=== PATIENT | male | born 1965 | race Caucasian/White ===

== ENCOUNTER 2018-12-19 20:27 | Observation (INO) ==
--- NOTE | 2018-12-19 20:50 | XRay Report ---
XR chest 1V portable HISTORY: 53 years-old Male Chest Pain acute atypical chest pain COMPARISON: None available TECHNIQUE: Portable AP view of the chest FINDINGS: Cardiomediastinal and hilar silhouettes are within normal limits. No pneumothorax, pleural effusion, focal airspace consolidation or overt pulmonary edema. Eventration of the right hemidiaphragm. IMPRESSION: No acute process. The above report was generated using voice recognition software. It may contain grammatical, syntax o r spelling errors. Electronically signed by: Clark Medina M.D. 12/19/2018 8:48 PM
[2018-12-19 21:12] LABS: Basophils # (auto) 0.04 K/uL (0-0.2); Basophils % (auto) 0.4 %; Eosinophils # (auto) 0.07 K/uL (0-0.5); Eosinophils % (auto) 0.7 %; Hemoglobin 14.9 g/dL (14.0-18.0); Immature Granulocytes # (auto) 0.01 K/uL (0.00-0.02); Immature Granulocytes % (auto) 0.1 %; Lymphocytes # (auto) 2.12 K/uL (1.2-3.4); Mean Corpuscular Hemoglobin 30.8 pg (25-34); Mean Corpuscular Hgb Conc 34.7 g/dL (32-36); Mean Platelet Volume 11.1 fL (7.4-10.4); Monocytes # (auto) 0.91 K/uL (0.11-0.59); Monocytes % (auto) 9.4 %; Neutrophils % (auto) 67.4 %; Platelet Count 199 K/uL (130-400); RDW Coefficient of Variation 13.7 % (11.5-14.5); RDW Standard Deviation 44.9 fL (36.4-46.3); Red Blood Count 4.83 M/uL (4.7-6.1); White Blood Count 9.65 K/uL (4.8-10.8)
[2018-12-19] MEDS ORDERED: ASPIRIN CHEW 324 MG PO STA (21:20)
[2018-12-19 21:21] LABS: Alanine Aminotransferase 39 U/L (12-78); Albumin Level 4.1 gm/dl (3.4-5.0); Aspartate Aminotransferase 33 U/L (15-37); Blood Urea Nitrogen 13 mg/dl (7-18); Carbon Dioxide 24 mmol/L (21-32); Chloride 108 mmol/L (98-107); Creatinine Clr Calc Pharmacy 116.5 ml/min; Est GFR (African American) 89.1; Est GFR (Non-African American) 76.9; Glucose 115 mg/dl (70-99); Lipase 92 U/L (73-393); Magnesium 1.8 mg/dl (1.8-2.4); Potassium 3.2 mmol/L (3.5-5.1); Sodium 141 mmol/L (136-145)
[2018-12-19 21:26] LABS: Albumin Globulin Ratio 1.3 (0.9-2); Alkaline Phosphatase 51 U/L (45-117); Bilirubin,Total 0.5 mg/dl (0.2-1); Globulin 3.3 gm/dl (2.5-4.0); Phosphorus 3.1 mg/dl (2.5-4.9); Total Protein 7.4 gm/dl (6.4-8.2); Troponin I < 0.015 ng/ml (0-0.045)
[2018-12-19] MEDS ORDERED: POTASSIUM CHLORIDE 20 MEQ TABCR PO STA (21:31)
[2018-12-19] MEDS ORDERED: POTASSIUM ACETATE 10 MEQ in 0.9 % SODIUM CHLORIDE 100 ML IV STA (21:31)
[2018-12-19] MEDS ORDERED: SODIUM CHLORIDE 0.9% 1000ML 1,000 ML IV STA (21:31)
[2018-12-19 21:34] LABS: INR 1.1 (0.9-1.1); Partial Thromboplastin Ratio 0.9; Partial Thromboplastin Time 24.8 Seconds (21.0-31.0); Prothrombin Time 11.2 Seconds (9.0-12.0)
--- NOTE | 2018-12-19 22:32 | History & Physical Report ---
Date of Service December 19, 2018 Assessment & Plan (1) Unstable angina: Unstable angina/strong family history of coronary disease/obesity/hyperglycemia/probable metabolic syndrome- The patient will be admitted to telemetry for serial cardiac enzymes, serial EKG's, cardiac rhythm monitoring and a 2-D echocardiogram with Dopplers. Given aspirin 324 mg orally in the ED. Continue aspirin 81 mg daily. Standard heparin drip per protocol begun in ED and will be continued. Repeat laboratories in a.m. Consult cardiology, as patient is new to the area, and even if laboratories are normal, likely has underlying cardiovascular disease and needs a design teacher to follow with. Present on Admission?: Yes (2) Family history of coronary artery disease: Father had OK and CABG at age 55. Brother had coronary artery stents at age 53. Present on Admission?: Yes (3) Obesity (BMI 30-39.9): Noted as risk factor for cardiovascular disease. Present on Admission?: Yes (4) Hypokalemia: Give 40 mEq Klor-Con in the ED. Placed on NSS + KCl 20 mEq at 100 mils per hour. Magnesium borderline at 1.8. We will give 1 g of mag sulfate IV. Repeat BMP and magnesium level in a.m. Present on Admission?: Yes (5) Hyperglycemia, unspecified: Blood sugar 115 in the ED. We will check hemoglobin A1c and fasting lipid panel in a.m. Present on Admission?: Yes History of Present Illness Chief Complaint: The patient presents to the emergency department with inc reasing frequency of episodes of shortness of breath and chest discomfort over the past 2 to 3 days. Primary Care Provider: NO PCP The patient is a 53-year-old male with no significant past medical history, who has not been involved with a medical system for many years, and has a very significant family history of coronary artery disease and his father and brother. He just moved to the area this past weekend, and over the past 2 to 3 days has been doing more lifting and unpacking of heavier objects. With this activity, he has developed episodes of chest discomfort and shortness of breath, that resolved with rest. They have been developing with an more frequent intervals and lasting longer. He presented to the emergency department for assessment, was felt to have unstable angina, and was started on aspirin 324 mg and standard heparin drip without bolus. In the emergency department, he does also report some intermittent episodes of lightheadedness. Allergies Allergy/AdvReac Type Severity Reaction Status Date / Time No Known Allergies Allergy Unverified 12/19/18 22:17 Home Medications Home Medications Medication Instructions Recorded Confirmed Type No Known Home Medications 12/19/18 12/19/18 History Past Med/Surg History Medical History No pertinent past medical history Surgical History No pertinent past surgical history Family History Other No pertinent family history Social History Preferred Language: Frisian Communication Ability: Effective Field Tax Auditor Required: No Beliefs That Will Affect Care: None Current Living Situation: Spouse Other Information That Helps Us Care for You: No Feels Safe at Home: Yes Safety Concerns: Feels Safe At This Time Smoking Status: Never smoker Do You Dip or Chew Tobacco: No ; Second Hand Exposure: No ; Tobacco Cessation Education Requested by Patient: No Hx Alcohol Use: No Hx Substance Use: No Review of Systems Review of Systems: The patient denies palpitations, cough, lower extremity swelling, sore throat, fevers, chills, sweats, fatigue, nausea, vomiting, diarrhea , constipation, abdominal pain, pelvic pain, blood in urine or stool, dysuria, urinary frequency or urgency, dizziness, headache, memory loss, loss of consciousness, rash, abnormal bruising or bleeding, imbalance, focal or generalized weakness, numbness or tingling in arms or legs, generalized arthralgias or myalgias, back or neck pain, or night sweats. The review of systems is otherwise negative other than for that already noted above, and at least 10 systems have been reviewed. Physical Exam Physical Exam: The patient is awake, alert and oriented 3, well developed and well nourished, normocephalic and atraumatic, lying in bed and in no acute distress. HEENT--PERRL, EOMI, mucous membranes and oropharynx normal. Neck--supple. No JVD. No bruits. Thyroid normal, trachea midline, no adenopathy. Heart--normal S1 and S2. No murmurs, rubs or gallops. Lungs--clear bilaterally, no respiratory distress, no accessory muscle use. Abdomen--normal bowel sounds and soft. Nontender. Nondistended. Obese. Extremities--no cyanosis or clubbing. No edema. There are good distal pulses b/l. Dermatologic--normal skin turgor, normal color, no abnormal lymph nodes, no rash. Neurologic--cranial nerves II through XII grossly intact. Rheumatologic--normal range of motion. Psychiatric--normal affect. Results & Data Vital Signs (Past 12 Hours) Vital Signs Temp Pulse Pulse Resp BP BP Pulse Ox 12/19/18 21:30 75 18 144/93 H 96 12/19/18 20:28 98.1 F 95 H 16 160/99 H 96 Laboratory Results Laboratory Results WBC 9.65 K/uL (4.8-10.8) 12/19/18 20:55 RBC 4.83 M/uL (4.7-6.1) 12/19/18 20:55 Hgb 14.9 g/dL (14.0-18.0) 12/19/18 20:55 Hct 43.0 % (42-52) 12/19/18 20:55 MCV 89.0 fL (80-100) 12/19/18 20:55 MCH 30.8 pg (25-34) 12/19/18 20:55 MCHC 34.7 g/dL (32-36) 12/19/18 20:55 RDW Std Deviation 44.9 fL (36.4-46.3) 12/19/18 20:55 RDW Coeff of Siddhartha 13.7 % (11.5-14.5) 12/19/18 20:55 Plt Count 199 K/uL (130-400) 12/19/18 20:55 MPV 11.1 fL (7.4-10.4) H 12/19/18 20:55 Immature Gran % (Auto) 0.1 % 12/19/18 20:55 Neut % (Auto) 67.4 % 12/19/18 20:55 Lymph % (Auto) 22.0 % 12/19/18 20:55 [place] % (Auto) 9.4 % 12/19/18 20:55 Eos % (Auto) 0.7 % 12/19/18 20:55 Baso % (Auto) 0.4 % 12/19/18 20:55 Immature Gran # (Auto) 0.01 K/uL (0.00-0.02) 12/19/18 20:55 Neut # (Auto) 6.50 K/uL (1.4-6.5) 12/19/18 20:55 Lymph # (Auto) 2.12 K/uL (1.2-3.4) 12/19/18 20:55 [place] # (Auto) 0.91 K/uL (0.11-0.59) H 12/19/18 20:55 Eos # (Auto) 0.07 K/uL (0-0.5) 12/19/18 20:55 Baso # (Auto) 0.04 K/uL (0-0.2) 12/19/18 20:55 PT 11.2 Seconds (9.0-12.0) 12/19/18 20:55 INR 1.1 (0.9-1.1) 12/19/18 20:55 APTT 24.8 Seconds (21.0-31.0) 12/19/18 20:55 PTT Ratio 0.9 12/19/18 20:55 Sodium 141 mmol/L (136-145) 12/19/18 20:55 Potassium 3.2 mmol/L (3.5-5.1) L 12/19/18 20:55 Chloride 108 mmol/L (98-107) H 12/19/18 20:55 Carbon Dioxide 24 mmol/L (21-32) 12/19/18 20:55 Anion Gap 9.0 (3-11) 12/19/18 20:55 BUN 13 mg/dl (7-18) 12/19/18 20:55 Creatinine 1.08 mg/dl (0.6-1.4) 12/19/18 20:55 Est Cr Clr Drug Dosing 116.5 ml/min 12/19/18 20:55 Est GFR ( Amer) 89.1 12/19/18 20:55 Est GFR (Non-Af Amer) 76.9 12/19/18 20:55 BUN/Creatinine Ratio 12.0 (10-20) 12/19/18 20:55 Glucose 115 mg/dl (70-99) H 12/19/18 20:55 Calcium 9.0 mg/dl (8.5-10.1) 12/19/18 20:55 Phosphorus 3.1 mg/dl (2.5-4.9) 12/19/18 20:55 Magnesium 1.8 mg/dl (1.8-2.4) 12/19/18 20:55 Total Bilirubin 0.5 mg/dl (0.2-1) 12/19/18 20:55 AST 33 U/L (15-37) 12/19/18 20:55 ALT 39 U/L (12-78) 12/19/18 20:55 Alkaline Phosphatase 51 U/L (45-117) 12/19/18 20:55 Troponin I < 0.015 ng/ml (0-0.045) 12/19/18 20:55 Total Protein 7.4 gm/dl (6.4-8.2) 12/19/18 20:55 Albumin 4.1 gm/dl (3.4-5.0) 12/19/18 20:55 Globulin 3.3 gm/dl (2.5-4.0) 12/19/18 20:55 Albumin/Globulin Ratio 1.3 (0.9-2) 12/19/18 20:55 Lipase 92 U/L (73-393) 12/19/18 20:55 Diagnostic Findings [place], [place] [phone] XRay Report Patient: TIAGO WOLF Date: 12/19/18 MR#: [id number]: Acct ID:[id number]: Date: [address] Zip: Age: 53Location: ED Sex: M Room/Bed: Att Phy:Diagnosis: CHEST PAIN Mercedes Phy: PCP,NOService Date: 12/19/18 Fam Phy:Interpreting Phy: Jacobo Medina Admit Phy: Ordering Phy: Ata Parra M.D. cc: ~ XR chest 1V portable HISTORY: 53 years-old Male Chest Pain acute atypical chest pain COMPARISON: None available TECHNIQUE: Portable AP view of the chest FINDINGS: Cardiomediastinal and hilar silhouettes are within normal limits. No pneumothorax, pleural effusion, focal airspace consolidation or overt pulmonary edema. Eventration of the right hemidiaphragm. IMPRESSION: No acute process. The above report was generated using voice recognition software. It may contain grammatical, syntax or spelling errors. Electronically signed by: Clark Medina M.D. 12/19/2018 8:48 PM Dictated: 12/19/182046 Transcribed: 12/19/182046 Code Status & VTE Plan Code Status Full code VTE Prophylaxis Plan VTE Prophylaxis will be ordered: Yes PG Care Time/CCT Total # of Minutes Spent Total Time Spent with Patient: Total time spent is greater than 50% in coordination of care (as documented) at patient's floor/unit and/or counseling patient:
[2018-12-19] MEDS: HEPARIN SODIUM/DEXTROSE 25,000 UNITS/500 ML BAG IV SCH (22:33)
[2018-12-19] MEDS ORDERED: MAGNESIUM SULFATE / D5W 1 GM/100 ML BAG IV STA (22:35)
[2018-12-19] MEDS ORDERED: ACETAMINOPHEN 325 MG TAB PO PRN (23:20)
[2018-12-19] MEDS ORDERED: NITROGLYCERIN SL 0.4 MG/TAB TAB SL PRN (23:20)
[2018-12-19] MEDS ORDERED: ONDANSETRON INJ 2 MG/ML 2 ML VIAL IV PRN (23:20)
[2018-12-19] MEDS ORDERED: MoRPHine SULFATE 2 MG/ML CARP IV PRN (23:20)
[2018-12-19] MEDS ORDERED: MAGNESIUM HYDROXIDE SUSP 30 ML UDC PO PRN (23:20)
[2018-12-19] MEDS ORDERED: ALUMINUM/MAGNESIUM SUSP 30 ML UDC PO PRN (23:20)
--- NOTE | 2018-12-19 23:33 | Emergency Department Note ---
Entered by Myra Brewster acting as a scribe for Ata Parra MD History of Present Illness General Chief complaint: Chest Pain Stated complaint: CHEST PAIN Time Seen by Provider: 12/19/18 20:37 Source: patient History of Present Illness Onset (ago): hour(s) (1) Location: chest Pain Consistency: + intermittent Maximum Pain Intensity: 6 Exacerbated By: + other (exertion) Associated symptoms: + diaphoresis, + shortness of breath and + other (chest tightness) The patient is a 53 year old male who presents to the Emergency Room with complaints of intermittent chest pain beginning 1 hour ago. The patient states he was exerting himself when the pain began. He notes the pain slowly starts to resolve upon sitting down. He reports shortness of breath and sweating. He denies congestion, cough, fever, and diarrhea. The patient reports chest tightness with exertion several times over the past few days. The patient denies any medical problems. He denies seeing a doctor regularly. The patient reports a family history of cardiac issues. He states his father and brother both had OR in their late 50s. Home Medications Home Medications Medication Instructions Recorded Confirmed Type No Known Home Medications 12/19/18 12/19/18 History Allergies Allergy/AdvReac Type Severity Reaction Status Date / Time No Known Allergies Allergy Unverified 12/19/18 22:17 Past Med/Surg History Medical History No pertinent past medical history Surgical History No pertinent past surgical history Family History Other No pertinent family history Social History Preferred Language: Setswana Communication Ability: Effective Evs Attendant Required: No Beliefs That Will Affect Care: None Current Living Situation: Spouse Other Information That Helps Us Care for You: No Feels Safe at Home: Yes Safety Concerns: Feels Safe At This Time Smoking Status: Never smoker Do You Dip or Chew Tobacco: No ; Second Hand Exposure: No ; Tobacco Cessation Education Requested by Patient: No Hx Alcohol Use: No Hx Substance Use: No Review of Systems See HPI for pertinent positives & negatives. and A total of 10 systems reviewed and were otherwise negative Physical Exam Vital Signs Vital Signs - 24 hr 12/19/18 20:28 12/19/18 21:30 Temperature 36.7 C Temperature Source Oral Sepsis Recent Fever Within 48 Hours No Sepsis New/Unexplained Change in Mental Status No Sepsis Action Taken by Nursing No Action Required Pulse Rate 95 H Pulse Rate [Bilateral] 75 Respiratory Rate 16 18 Respiratory Effort / Characteristics Non-Labored Spontaneous Respiratory Depth Normal Respiratory Pattern Regular Blood Pressure 160/99 H Blood Pressure [Left Arm] 144/93 H Blood Pressure Mean 119 Blood Pressure Mean [Left Arm] 110 Blood Pressure Position [Left Arm] Lying Pulse Oximetry 96 96 Oxygen Delivery Method Room Air Room Air GENERAL: Awake, alert, fatigued-appearing, in no distress HENT: Normocephalic, atraumatic. Oropharynx with dry mucous membranes and otherwise unremarkable. EYES: Normal conjunctiva. Sclera non-icteric. NECK: Supple. No nuchal rigidity. FROM. No JVD. RESPIRATORY: CTAB. CARDIAC: Regular rate, normal rhythm. Extremities warm and well perfused. Pulses equal. ABDOMEN: Soft, non-distended. No tenderness to palpation. No rebound or guarding. No masses. RECTAL: Deferred. MUSCULOSKELETAL: Chest examination reveals no tenderness. The back is symmetrical on inspection without obvious abnormality. There is no CVA tendernes s to palpation. No joint edema. LOWER EXTREMITIES: Calves are equal size bilaterally and non-tender. No edema. No discoloration. NEURO: Normal sensorium. No sensory or motor deficits noted. SKIN: No rash or jaundice noted. Course 2109: Past medical records reviewed. The patient was evaluated in room B04B. A complete history and physical exam was performed. 2129: Upon reevaluation, I discussed findings and results with the patient. He verbalized agreement of the treatment plan. I spoke with Dr. Thacker of the [facility] Hospitalist Service. The patient will be evaluated for further management and care. Administered Medications Heparin Sodium/Dextrose (Heparin Sodium/Dextrose) 25,000 units in 500 mls @ 38 mls/hr IV .[id number] COUNT INCLUDES THE [facility]; Protocol Stop: 01/18/19 21:29 Last Titration: 12/19/18 23:21 Dose: 1,900 units/hr, 38 mls/hr Documented by: [id number] Cosigned by: [id number] Admin: 12/19/18 22:33 Dose: 1,900 units/hr, 38 mls/hr Documented by: [id number] Cosigned by: [id number] Sodium Chloride (Nss 1000ml) 1,000 mls @ 250 mls/hr IV .Q4H STA Stop: 12/20/18 01:30 EST Last Infusion: 12/19/18 23:35 Dose: 0 mls/hr Documented by: [id number] Admin: 12/19/18 22:33 Dose: 250 mls/hr Documented by: [id number] Potassium Chloride/Sodium Chloride (Normal Saline W/20 Meq Kcl) 20 meq in 1,000 mls @ 100 mls/hr IV .Q10H YON Stop: 01/18/19 21:59 Last Admin: 12/19/18 23:38 Dose: 100 mls/hr Documented by: [id number] Nitroglycerin (Nitro-Bid 2%) 1 inch EXT Q6 YON Stop: 01/19/19 00:00 Last Admin: 12/19/18 23:38 Dose: 1 inch Documented by: [id number] Discontinued Medications Aspirin (Aspirin) 324 mg PO NOW STA Stop: 12/19/18 21:21 Last Admin: 12/19/18 21:23 Dose: 324 mg Documented by: [id number] Heparin Sodium/Dextrose () 1 ea IV NOW STA; Protocol Stop: 12/19/18 21:30 Last Admin: 12/19/18 22:41 Dose: Not Given Documented by: [id number] Potassium Acetate 10 meq/ (Sodium Chloride) 105 mls @ 105 mls/hr IV NOW STA Stop: 12/19/18 22:30 Last Admin: 12/19/18 21:49 Dose: Not Given Documented by: [id number] Magnesium Sulfate/Dextrose (Magnesium Sulfate / D5w) 1 gm in 100 mls @ 100 mls/hr IV NOW STA Stop: 12/19/18 23:34 Last Infusion: 12/19/18 23:50 Dose: 0 mls/hr Documented by: [id number] Admin: 12/19/18 22:50 Dose: 100 mls/hr Documented by: [id number] Miscellaneous Information (Patient's Allergy Info Needs Entered) 1 ea N/A Q30M YON Stop: 01/18/19 22:14 Last Admin: 12/20/18 00:17 Dose: Not Given Documented by: [id number] Admin: 12/20/18 00:16 Dose: Not Given Documented by: [id number] Admin: 12/20/18 00:15 Dose: Not Given Documented by: [id number] Potassium Chloride (Klor-Con M20) 40 meq PO NOW STA Stop: 12/19/18 21:32 Last Admin: 12/19/18 22:32 Dose: 40 meq Documented by: [id number] Medical Decision Making Differential Diagnosis Differential diagnoses includes but is not limited to acute coronary syndrome, myocardial infarction, pericarditis, pulmonary embolus, aortic dissection, pneumonia, pneumothorax, musculoskeletal, shingles, esophageal. Medical Records Attestation: I reviewed the patient's medical records. Home Medications Current Medication List: was personally reviewed by me Laboratory Data Attestation: I reviewed the patient's lab results. Result diagrams: 12/19/18 20:55 12/19/18 20:55 Lab Results 12/19/18 12/19/18 12/19/18 Range/Units 20:55 20:55 20:55 WBC 9.65 (4.8-10.8) K/uL RBC 4.83 (4.7-6.1) M/uL Hgb 14.9 (14.0-18.0) g/dL Hct 43.0 (42-52) % MCV 89.0 (80-100) fL MCH 30.8 (25-34) pg MCHC 34.7 (32-36) g/dL RDW Std Deviation 44.9 (36.4-46.3) fL RDW Coeff of Siddhartha 13.7 (11.5-14.5) % Plt Count 199 (130-400) K/uL MPV 11.1 H (7.4-10.4) fL Immature Gran % (Auto) 0.1 % Neut % (Auto) 67.4 % Lymph % (Auto) 22.0 % [place] % (Auto) 9.4 % Eos % (Auto) 0.7 % Baso % (Auto) 0.4 % Immature Gran # (Auto) 0.01 (0.00-0.02) K/uL Neut # (Auto) 6.50 (1.4-6.5) K/uL Lymph # (Auto) 2.12 (1.2-3.4) K/uL [place] # (Auto) 0.91 H (0.11-0.59) K/uL Eos # (Auto) 0.07 (0-0.5) K/uL Baso # (Auto) 0.04 (0-0.2) K/uL PT 11.2 (9.0-12.0) Seconds INR 1.1 (0.9-1.1) APTT 24.8 (21.0-31.0) Seconds PTT Ratio 0.9 Sodium 141 (136-145) mmol/L Potassium 3.2 L (3.5-5.1) mmol/L Chloride 108 H (98-107) mmol/L Carbon Dioxide 24 (21-32) mmol/L Anion Gap 9.0 (3-11) BUN 13 (7-18) mg/dl Creatinine 1.08 (0.6-1.4) mg/dl Est Cr Clr Drug Dosing 116.5 ml/min Est GFR ( Amer) 89.1 Est GFR (Non-Af Amer) 76.9 BUN/Creatinine Ratio 12.0 (10-20) Glucose 115 H (70-99) mg/dl Calcium 9.0 (8.5-10.1) mg/dl Phosphorus 3.1 (2.5-4.9) mg/dl Magnesium 1.8 (1.8-2.4) mg/dl Total Bilirubin 0.5 (0.2-1) mg/dl AST 33 (15-37) U/L ALT 39 (12-78) U/L Alkaline Phosphatase 51 (45-117) U/L Troponin I < 0.015 (0-0.045) ng/ml Total Protein 7.4 (6.4-8.2) gm/dl Albumin 4.1 (3.4-5.0) gm/dl Globulin 3.3 (2.5-4.0) gm/dl Albumin/Globulin Ratio 1.3 (0.9-2) Lipase 92 (73-393) U/L Imaging Data Radiologist's Impression: Radiology results as stated below per my review and the radiologist's interpretation: XR chest 1V portable HISTORY: 53 years-old Male Chest Pain acute atypical chest pain COMPARISON: None available TECHNIQUE: Portable AP view of the chest FINDINGS: Cardiomediastinal and hilar silhouettes are within normal limits. No pneumothorax, pleural effusion, focal airspace consolidation or overt pulmonary edema. Eventration of the right hemidiaphragm. IMPRESSION: No acute process. The above report was generated using voice recognition software. It may contain grammatical, syntax or spelling errors. Electronically signed by: Clark Medina M.D. 12/19/2018 8:48 PM ECG Data Attestation: I personally reviewed and interpreted this ECG as follows: Indication: + chest pain Rate (beats per minute): 80 Rhythm: + normal sinus ECG ST segments: no ST elevation ECG Findings: + Other (nonspecific interventricular block, QRS 130, QTC 456) Blood Pressure Blood Pressure Findings: Elevated blood pressure Blood Pressure Disposition: further management by hospitalist [facility] Narrative The patient is a pleasant 53-year-old gentleman without any known medical history however has not followed with a doctor for his adult life who presents emerged department with exertional chest pain just prior to arrival when he was working in his garage that improved upon rest in the setting of having several other episodes over the past couple of days per hpi. He does report a family history of coronary disease with his brother and father who developed symptoms in their 50s. On arrival patient denies any symptoms at this time. EKG without ST elevation or ST depression. Nonspecific intra-ventricular conduction block with QRS 130. No prior EKG for comparison. Chest x-ray negative for acute process. WBC, H/H and platelets within normal limits. Chemistry without acidosis. Initial troponin negative/undetectable. Potassium 3.2 with repletion provided. I did review the findings with the patient and expressed my concern that his exertional symptoms could be indicative of underlying coronary disease. I did recommend admission for further evaluation to which the patient was agreeable. Case was discussed with Dr. Thacker, [facility] hospital[place], who accepts the patient for admission. Agrees with treating with heparin for unstable angina. Impression & Plan Unstable angina, Family history of coronary artery disease, Exertional chest pain, Hypokalemia Critical Care Time Critical Care Time: Yes Total Critical Care Time: 45 I have personally spent greater than 45 minutes of critical care time in the direct management of this patient. This includes bedside care, interpretation of diagnostic studies, and testing, discussion with consultants, patient, and family members, and other required patient management activities. This 45 minutes is in excess of all separately billable procedures. Discharge Plan Visit Data *Final* Discharge Date/Time: 12/19/18 22:54 Chief Complaint: Chest Pain Stated Complaint: CHEST PAIN ED Provider: Ata Parra Discharge Problem: Unstable angina, Family history of coronary artery disease, Exertional chest pain, Hypokalemia Patient Disposition: Admitted As Inpatient Discharge Instructions Interventions: ED Discharge Assessment Last Done: 12/19/18 22:54 The scribe's documentation has been prepared under my direction and personally reviewed by me in its entirety. I confirm that the note above accurately reflects all work, treatment, procedures, and medical decision making performed by me.
[2018-12-19] MEDS: NSS + 20MEQ KCL 20 MEQ/1,000 ML BAG IV SCH (23:38)
[2018-12-19] MEDS: NITROGLYCERIN 2% OINTMENT 30GM TUBE EXT SCH (23:38)
[2018-12-20] MEDS: PATIENT'S ALLERGY INFO NEEDS ENTERED SCH ×3 (00:15→00:17)
[2018-12-20 04:43] LABS: Basophils # (auto) 0.02 K/uL (0-0.2); Basophils % (auto) 0.3 %; Eosinophils # (auto) 0.11 K/uL (0-0.5); Eosinophils % (auto) 1.7 %; Hematocrit (blood only) 39.5 % (42-52); Hemoglobin 13.1 g/dL (14.0-18.0); Immature Granulocytes # (auto) 0.02 K/uL (0.00-0.02); Immature Granulocytes % (auto) 0.3 %; Lymphocytes # (auto) 2.01 K/uL (1.2-3.4); Lymphocytes % (auto) 30.9 %; Mean Corpuscular Hemoglobin 29.8 pg (25-34); Mean Corpuscular Hgb Conc 33.2 g/dL (32-36); Mean Platelet Volume 11.4 fL (7.4-10.4); Monocytes # (auto) 0.65 K/uL (0.11-0.59); Neutrophils % (auto) 56.8 %; Platelet Count 185 K/uL (130-400); RDW Coefficient of Variation 13.9 % (11.5-14.5); RDW Standard Deviation 46.1 fL (36.4-46.3); Red Blood Count 4.39 M/uL (4.7-6.1); White Blood Count 6.51 K/uL (4.8-10.8)
[2018-12-20 05:01] LABS: Partial Thromboplastin Time 54.8 Seconds (21.0-31.0)
[2018-12-20 05:18] LABS: Alanine Aminotransferase 31 U/L (12-78); Albumin Globulin Ratio 1.3 (0.9-2); Albumin Level 3.5 gm/dl (3.4-5.0); Alkaline Phosphatase 44 U/L (45-117); Aspartate Aminotransferase 26 U/L (15-37); BUN Creatinine Ratio 12.9 (10-20); Bilirubin,Total 0.6 mg/dl (0.2-1); Blood Urea Nitrogen 11 mg/dl (7-18); Calcium 8.1 mg/dl (8.5-10.1); Carbon Dioxide 25 mmol/L (21-32); Chloride 110 mmol/L (98-107); Chol HDL Ratio 3; Cholesterol 150 mg/dl (0-200); Creatinine Clr Calc Pharmacy 151.1 ml/min; Est GFR (African American) 114.8; Est GFR (Non-African American) 99.1; Globulin 2.8 gm/dl (2.5-4.0); Glucose 106 mg/dl (70-99); HDL Cholesterol 45 mg/dl; LDL Cholesterol Calculated 88 mg/dl; Sodium 141 mmol/L (136-145); Total Protein 6.3 gm/dl (6.4-8.2); Triglycerides 84 mg/dl (0-150); Troponin I < 0.015 ng/ml (0-0.045); VLDL Cholesterol 17 mg/dl
[2018-12-20] MEDS: NITROGLYCERIN 2% OINTMENT 30GM TUBE EXT SCH (05:29)
[2018-12-20] MEDS: HEPARIN SODIUM/DEXTROSE 25,000 UNITS/500 ML BAG IV SCH ×2 (09:43→21:22)
--- NOTE | 2018-12-20 09:47 | Cardiology Consultation ---
Date of Consultation December 20, 2018 Assessment & Plan (1) Exertional chest pain: Patient's symptoms are concerning for angina. The character of the symptoms may be slightly atypical, but certainly consistent with coronary insufficiency. The fact that it seems fairly reproducible with activity and resolves with rest also suggests a cardiac etiology. There are no objective findings of coronary disease or infarct. He is currently symptom free. He does have a very strong family history of premature coronary disease including premature disease in both his father and brother. He does not have other risk factors for coronary disease although he has not sought medical attention in several years. Blood pressures been slightly elevated here, and he may in fact have untreated hypertension. His lipid profile looks favorable. Blood sugar was slightly elevated but not diagnostic of diabetes. Hemoglobin A1c currently pending. We discussed options for evaluation. We discussed the option of noninvasive testing. He has a history of a left knee replacement and cannot jog or walk rapidly as a result. Pharmacologic stress testing would be an option, but given his symptoms and family history I think his risk for coronary disease is significant. The patient and his are very concerned that this represents coronary disease. I would be skeptical of a stress test that was negative for ischemia, and I think the patient and his would also be skeptical. They are more interested in a definitive test and I feel that coronary angiography is reasonable in this circumstance. I did describe the risks benefits and the alternatives as noted above. We will plan on proceeding with coronary angiography tomorrow provided he remains symptom free. I think we can discontinue his nitroglycerin. We will continue him on systemic heparinization. We will need to monitor his blood pressure and decide on an antihypertensive regimen if he continues to have higher blood pressures. Some of this may be dictated by his coronary anatomy. History of Present Illness Reason for Consultation: Chest pain Requesting Physician: Manasa Attending Physician: Franc Urena MD History of Present Illness The patient is a 53-year-old gentleman with no known history of cardiac disease who has been experiencing symptoms of chest discomfort. Patient states that approximately 3 days ago began experience some very mild symptoms of chest discomfort associated with activity. This is manifest primarily as a squeezing or pressure sensation in the left precordium. This was associated with some mild dyspnea. Patient's symptoms were precipitated primarily with activity and seem to resolve with rest. They would last a few minutes at a time. Yesterday he began to have more severe symptoms. Symptoms themselves were of greater intensity. Again, they were precipitated by activity and relieved with rest. He had more significant breathing trouble yesterday. He also had a sense of diaphoresis and mild nausea. There did not seem to be general is a wheeler of the symptoms to involve the back neck or jaw. Patient cannot recall similar symptoms in the past. He has a fairly sedentary individual but does report walking on a regular basis. During this mild exercise he generally does not have symptoms of dyspnea or chest discomfort. He did not report reproducibility of the symptoms with movement of the left arm. There are no pleuritic symptoms. Currently he is feeling well without symptoms of chest discomfort. Allergies Allergy/AdvReac Type Severity Reaction Status Date / Time No Known Allergies Allergy Unverified 12/19/18 22:17 Home Medications Home Medications Medication Instructions Recorded Confirmed Type No Known Home Medications 12/19/18 12/19/18 History Patient History Medical History No pertinent past medical history Surgical History No pertinent past surgical history Family History Other No pertinent family history Social History Preferred Language: Brazilian Communication Ability: Effective Service Dismantler Required: No Beliefs That Will Affect Care: None Current Living Situation: Spouse Other Information That Helps Us Care for You: No Feels Safe at Home: Yes Safety Concerns: Feels Safe At This Time Smoking Status: Never smoker Do You Dip or Chew Tobacco: No ; Second Hand Exp osure: No ; Tobacco Cessation Education Requested by Patient: No Hx Alcohol Use: No Hx Substance Use: No Review of Systems Review of Systems: All systems reviewed & are unremarkable except as noted in HPI & below He did not report any recent sense of palpitations. He does not report breathing trouble orthopnea. He does not report swelling of lower extremities. He has not had dizziness, lightheadedness or syncope. Physical Exam Physical Exam: The patient is alert and oriented. Mood and affect appeared normal. He answered all questions appropriately. HEENT: Pupils are equal and reactive to light and accommodation. Extraocular movements are intact. The sclerae are anicteric. Neuro: Cranial nerves intact Neck: Patient's neck is supple. He has palpable carotid pulses bilaterally without bruits on auscultation. There is no evidence of jugular venous distention. The thyroid is not enlarged. Lungs: Clear to auscultation bilaterally. He has good air movement without use of accessory muscles. No rales wheezes or rhonchi. Cardiac: Heart demonstrates a regular rate and rhythm. Normal S1 and S2. No murmurs on examination. Pulses: The patient has palpable radial pulses bilaterally that are equal in intensity Extremities: There was no evidence of hypoperfusion. There is no cyanosis or clubbing. There is no edema. Skin: I did not appreciate any rashes on examination today. Results & Data Vital Signs (Past 12 Hours) Vital Signs Temp Pulse Pulse Pulse Resp BP BP 12/20/18 07:02 36.5 C 70 19 142/84 H 12/20/18 04:00 36.6 C 65 20 142/76 H 12/19/18 23:26 77 18 155/94 H 12/19/18 23:06 36.6 C 62 20 167/88 H 12/19/18 22:54 71 18 146/76 H Pulse Ox 12/20/18 07:02 95 12/20/18 04:00 94 12/19/18 23:26 95 12/19/18 23:06 95 12/19/18 22:54 97 Laboratory Results Abnormal Lab Results 12/19/18 12/19/18 12/19/18 20:55 20:55 20:55 WBC 9.65 RBC 4.83 Hgb 14.9 Hct 43.0 MCV 89.0 MCH 30.8 MCHC 34.7 RDW Std Deviation 44.9 RDW Coeff of Siddhartha 13.7 Plt Count 199 MPV 11.1 H Immature Gran % (Auto) 0.1 Neut % (Auto) 67.4 Lymph % (Auto) 22.0 Floyd % (Auto) 9.4 Eos % (Auto) 0.7 Baso % (Auto) 0.4 Immature Gran # (Auto) 0.01 Neut # (Auto) 6.50 Lymph # (Auto) 2.12 Floyd # (Auto) 0.91 H Eos # (Auto) 0.07 Baso # (Auto) 0.04 PT 11.2 INR 1.1 APTT 24.8 PTT Ratio 0.9 Sodium 141 Potassium 3.2 L Chloride 108 H Carbon Dioxide 24 Anion Gap 9.0 BUN 13 Creatinine 1.08 Est Cr Clr Drug Dosing 116.5 Est GFR ( Amer) 89.1 Est GFR (Non-Af Amer) 76.9 BUN/Creatinine Ratio 12.0 Glucose 115 H Calcium 9.0 Phosphorus 3.1 Magnesium 1.8 Total Bilirubin 0.5 AST 33 ALT 39 Alkaline Phosphatase 51 Troponin I < 0.015 Total Protein 7.4 Albumin 4.1 Globulin 3.3 Albumin/Globulin Ratio 1.3 Triglycerides Cholesterol LDL Cholesterol, Calc VLDL Cholesterol, Calc HDL Cholesterol Cholesterol/HDL Ratio Lipase 92 12/19/18 12/20/18 12/20/18 23:44 04:13 04:13 WBC RBC Hgb Hct MCV MCH MCHC RDW Std Deviation RDW Coeff of Siddhartha Plt Count MPV Immature Gran % (Auto) Neut % (Auto) Lymph % (Auto) Floyd % (Auto) Eos % (Auto) Baso % (Auto) Immature Gran # (Auto) Neut # (Auto) Lymph # (Auto) Floyd # (Auto) Eos # (Auto) Baso # (Auto) PT Cancelled INR Cancelled APTT 54.8 H* PTT Ratio 2.0 Sodium 141 Potassium 4.0 D Chloride 110 H Carbon Dioxide 25 Anion Gap 6.0 BUN 11 Creatinine 0.83 Est Cr Clr Drug Dosing 151.1 Est GFR ( Amer) 114.8 Est GFR (Non-Af Amer) 99.1 BUN/Creatinine Ratio 12.9 Glucose 106 H Calcium 8.1 L Phosphorus Magnesium Total Bilirubin 0.6 AST 26 ALT 31 Alkaline Phosphatase 44 L Troponin I < 0.015 < 0.015 Total Protein 6.3 L Albumin 3.5 Globulin 2.8 Albumin/Globulin Ratio 1.3 Triglycerides 84 Cholesterol 150 LDL Cholesterol, Calc 88 VLDL Cholesterol, Calc 17 HDL Cholesterol 45 Cholesterol/HDL Ratio 3 Lipase 12/20/18 04:13 WBC 6.51 RBC 4.39 L Hgb 13.1 L Hct 39.5 L MCV 90.0 MCH 29.8 MCHC 33.2 RDW Std Deviation 46.1 RDW Coeff of Siddhartha 13.9 Plt Count 185 MPV 11.4 H Immature Gran % (Auto) 0.3 Neut % (Auto) 56.8 Lymph % (Auto) 30.9 Floyd % (Auto) 10.0 Eos % (Auto) 1.7 Baso % (Auto) 0.3 Immature Gran # (Auto) 0.02 Neut # (Auto) 3.70 Lymph # (Auto) 2.01 Floyd # (Auto) 0.65 H Eos # (Auto) 0.11 Baso # (Auto) 0.02 PT INR APTT PTT Ratio Sodium Potassium Chloride Carbon Dioxide Anion Gap BUN Creatinine Est Cr Clr Drug Dosing Est GFR ( Amer) Est GFR (Non-Af Amer) BUN/Creatinine Ratio Glucose Calcium Phosphorus Magnesium Total Bilirubin AST ALT Alkaline Phosphatase Troponin I Total Protein Albumin Globulin Albumin/Globulin Ratio Triglycerides Cholesterol LDL Cholesterol, Calc VLDL Cholesterol, Calc HDL Cholesterol Cholesterol/HDL Ratio Lipase Diagnostic Findings Chest x-ray obtained at the time admission was unremarkable Echocardiogram obtained today revealed preserved LV systolic function with normal wall motion. No significant valvular heart disease. No hypertrophy. ECG Additional Comments: Presenting EKG demonstrated normal sinus rhythm without significant ST or T-wave changes. No evidence of old infarct. Slightly prolon ged QRS without specific bundle branch block pattern. PG Care Time/CCT Total # of Minutes Spent Total Time Spent with Patient: Total time spent is greater than 50% in coordination of care (as documented) at patient's floor/unit and/or counseling patient:
[2018-12-20] MEDS: ASPIRIN 81 MG ECTAB PO SCH (10:38)
[2018-12-20] MEDS: NSS + 20MEQ KCL 20 MEQ/1,000 ML BAG IV SCH (13:21)
--- NOTE | 2018-12-20 15:12 | Hospitalist Progress Note ---
Date of Service December 20, 2018 Assessment & Plan (1) Unstable angina: Unstable angina/strong family history of coronary disease/obesity/hyperglycemia/probable metabolic syndrome- Agree with cardiology recommendations of cardiac catheterization tomorrow given lack of alternative explanation for his symptoms and seemingly increasing frequency of these episodes which are not reproduciable on palpation Continue aspirin 81 mg daily. Serial tropinins negative. Will keep on IV heparin drip as per Dr Rebolledo's recommendation. (2) Family history of coronary artery disease: Father had [place] and CABG at age 55. Brother had coronary artery stents at age 53. (3) Obesity (BMI 30-39.9): Noted as risk factor for cardiovascular disease. (4) Hypokalemia: Resolved. Aim K > 4 (5) Hyperglycemia, unspecified: Blood sugar 115 in the ED. HbA1C will be back on Friday (6) DVT prophylaxis: On IV heparin drip as above. Subjective No acute overnight. No further chest pain, shortness of breath, orthopnea, PND, palpitations or claudication. Revisited history with the patient. Reports 3 episodes of chest pain on exertion. Associated diaphoresis. Lasted 30-40 seconds but had lingering tightness after this. Went away with rest. Last episode occurred 7pm prior to admission. Reports good exercise tolerance to this. Last few days has been under stress with moving into his new house in [place]. No history of heartburn. Review of Systems Review of Systems: All systems reviewed & are unremarkable except as noted in HPI & below Physical Exam Constitutional: well developed and + obese; no acute distress Eyes: PERRL, conjunctivae normal, anicteric sclerae ENMT: external ear and nose normal, oropharynx normal Neck: normal visual inspection, trachea midline and + thick neck Respiratory: normal respiratory effort, lungs clear to auscultation Cardiovascular: RRR, no murmur, no edema Gastrointestinal (Abdomen): normal bowel sounds, soft, nontender, no hepatosplenomegaly Musculoskeletal: no cyanosis or clubbing, extremities motor strength 5/5 Skin: no rashes, warm and dry Neurologic: moves all extremities and awake; no focal motor deficits and not confused Motor/Sensory: no tremor, no pronator drift and no sensory deficit Psychiatric: A+Ox3, euthymic affect Results & Data Vital Signs (Past 12 Hours) Vital Signs Temp Pulse Pulse Resp BP Pulse Ox 12/20/18 11:04 97.9 F 62 18 148/78 H 95 12/20/18 08:00 59 L 12/20/18 07:02 97.7 F 70 19 142/84 H 95 12/20/18 04:00 97.9 F 65 20 142/76 H 94 PG Care Time/CCT Total # of Minutes Spent Total Time Spent with Patient: Total time spent is greater than 50% in coordinat ion of care (as documented) at patient's floor/unit and/or counseling patient:
[2018-12-21 06:15] LABS: Estimated Average Glucose 111 mg/dl; Hemoglobin A1C 5.5 % (4.5-5.6)
[2018-12-21 06:34] LABS: Basophils # (auto) 0.03 K/uL (0-0.2); Basophils % (auto) 0.6 %; Eosinophils # (auto) 0.11 K/uL (0-0.5); Eosinophils % (auto) 2.1 %; Hematocrit (blood only) 42.1 % (42-52); Immature Granulocytes # (auto) 0.01 K/uL (0.00-0.02); Immature Granulocytes % (auto) 0.2 %; Lymphocytes # (auto) 1.77 K/uL (1.2-3.4); Mean Corpuscular Hemoglobin 29.7 pg (25-34); Mean Corpuscular Hgb Conc 33.3 g/dL (32-36); Mean Corpuscular Volume 89.4 fL (80-100); Mean Platelet Volume 10.9 fL (7.4-10.4); Monocytes # (auto) 0.66 K/uL (0.11-0.59); Monocytes % (auto) 12.7 %; Neutrophils # (auto) 2.63 K/uL (1.4-6.5); Neutrophils % (auto) 50.4 %; Platelet Count 178 K/uL (130-400); RDW Coefficient of Variation 13.8 % (11.5-14.5); RDW Standard Deviation 45.3 fL (36.4-46.3); Red Blood Count 4.71 M/uL (4.7-6.1); White Blood Count 5.21 K/uL (4.8-10.8)
[2018-12-21 06:55] LABS: INR 1.1 (0.9-1.1); Partial Thromboplastin Ratio 2.8; Prothrombin Time 11.4 Seconds (9.0-12.0)
[2018-12-21 07:03] LABS: Partial Thromboplastin Time 75.4 Seconds (21.0-31.0)
[2018-12-21 07:19] LABS: Albumin Globulin Ratio 1.1 (0.9-2); Albumin Level 3.5 gm/dl (3.4-5.0); BUN Creatinine Ratio 12.5 (10-20); Bilirubin,Total 0.4 mg/dl (0.2-1); Calcium 8.4 mg/dl (8.5-10.1); Creatinine Clr Calc Pharmacy 157.8 ml/min; Est GFR (African American) 117.2; Est GFR (Non-African American) 101.1; Globulin 3.2 gm/dl (2.5-4.0); Total Protein 6.7 gm/dl (6.4-8.2)
[2018-12-21] MEDS: ASPIRIN 81 MG ECTAB PO SCH (08:18)
[2018-12-21] MEDS: HEPARIN SODIUM/DEXTROSE 25,000 UNITS/500 ML BAG IV SCH (10:43)
[2018-12-21] MEDS ORDERED: MIDAZOLAM HCL 1 MG/ML 2ML VIAL ONE (11:52)
[2018-12-21] MEDS ORDERED: NiCARDipine HCL INJ 2.5 MG/ML 10 ML AMP ONE (11:52)
[2018-12-21] MEDS ORDERED: fentaNYL citrate 100 MCG/2 ML VIAL ONE (11:52)
[2018-12-21] MEDS ORDERED: HEPARIN (PORCINE) 1000 UNIT/ML 10 ML (CATH LAB USE ONLY) ONE (11:53)
[2018-12-21] MEDS ORDERED: NITROGLYCERIN/D5W 100MCG/ML 20ML SYR ONE (11:57)
--- NOTE | 2018-12-21 12:00 | Pre Anesthesia Assessment ---
Date of Service December 21, 2018 Pre Sedation Assessment Vital Signs Temp Pulse Resp BP BP Pulse Ox 12/21/18 10:55 36.9 C 61 22 140/79 96 12/21/18 07:46 36.7 C 60 18 131/75 94 12/21/18 04:00 36.7 C 59 L 20 157/78 H 98 12/20/18 23:46 36.7 C 61 20 139/78 96 12/20/18 19:27 37.0 C 56 L 18 157/75 H 96 12/20/18 15:44 36.8 C 62 18 134/72 94 Cardiovascular + regular rate Respiratory + respiratory effort normal Pre-Sedation Airway Assessment Smoking Status: Never smoker Hx Sleep Apnea: No Hx Difficult Intubation: No Short, Thick Neck: No Thyromental Distance: > or= 3.5 Finger Breadths Oral Cavity: + WNL Mallampati Class: III ASA: ASA3 NPO Status Date of Last Intake of Fluids: 12/20/18 Date of Last Intake of Solid Food: 12/20/18 Procedure Planning Contraindications for Sedation: none Current Medications Reviewed: Yes Notes The planned sedation has been discussed with the patient. Informed Consent was obtained. I have identified the patient, determined the appropriateness of sedation and have assessed the patient immediately prior to the procedure. All medicine(s) and interventions are by my order.
--- NOTE | 2018-12-21 13:02 | Cardiac Catheterization ---
ACC Data: Elementary Substitute Teacher Cardiac Status Clinical evaluation leading to the procedure CAD Presenation: Unstable angina Diagnostic Physicians Name: Juan Rebolledo MD Closure Device Recommendations: Medical Therapy and/or Counseling Cardiac Cath Procedure Full Procedure Date December 21, 2018 Pre-Procedure Diagnosis Pre-Procedure Diagnosis: Angina AUC Score AUC Score: 7 Post-Procedure Diagnosis Post-Procedure Diagnosis: Normal Coronary Arteries Procedure(s) Performed Procedure(s) Performed: Coronary Angiography and Left Heart Cath Executive Office Manager Juan Rebolledo MD Grab Setter(s) none Estimated Blood Loss Estimated Blood Loss: 10cc Medication(s) Medication(s): Fentanyl, Heparin, Nicardipine, Nitroglycerin and Versed Summary of Findings Equipment used: 5 Mexican tiger 4, 5 Mexican JL 3.5 Coronary angiography: Left main: Left main was a large and long vessel which bifurcated normally into the left anterior descending left circumflex vessels. There is no significant disease in this vessel. Left anterior descending: The left anterior descending was a very long transapical vessel. It produced a medium-sized diagonal branch which had approximately 50% ostial stenosis. The midportion of the LAD tapered significantly and the likely was of 40-50% long tubular stenosis in this portion. No discrete lesions. Left circumflex: Left circumflex artery was a nondominant vessel. He produced a very diminutive high OM and a large 2nd OM branch. There were no discrete lesions in this distribution Right coronary artery: Right coronary artery was a large dominant vessel. It had luminal irregularities in its proximal portion but no discrete lesions. Hemodynamics Rest Ao:: 130/77 mm Hg Final Ao: 147/85 mm Hg LV: 139/9 mm of mercury with an end-diastolic pressure of 21 mm Hg Recommendations Recommendations: Medical Therapy and/or Counseling Radiation Exposure (mGy) q Contrast (mls) q Procedural Complication(s) None Disposition PCU I attest to the content of the Intraoperative Record and any orders documented therein. Any exceptions are noted below.
[2018-12-21] MEDS ORDERED: SODIUM CHLORIDE 0.9% 1000ML 1,000 ML IV SCH (13:15)
--- NOTE | 2018-12-21 16:44 | Hospitalist Progress Note ---
Date of Service December 21, 2018 Assessment & Plan (1) Unstable angina: Atypical chest pain resolved. Left main was a large and long vessel which bifurcates normally into the left anterior descending and left circumflex vessel. There is no significant disease in this vessel. Left anterior descending shows approximately 50% of ostial stenosis. The midpoint of LAD tapered significantly and likely was 40 to 50% long tubular stenosis in this portion. No discrete lesion. Left circumflex: There is no discrete lesion in this distribution. Right coronary artery: Had luminal irregularities in its proximal portion but no discrete lesion. Dr. Rebolledo recommended coronary artery disease modifying agent such as statins, aspirin and fish oil. (2) Family history of coronary artery disease: Father had [place] and CABG at age 55. Brother had coronary artery stents at age 53. (3) Obesity (BMI 30-39.9): Noted as risk factor for cardiovascular disease. (4) Hypokalemia: Resolved. Aim K > 4 (5) Hyperglycemia, unspecified: Blood sugar 115 in the ED. HbA1C 5.5.-Borderline, or prediabetic. Discussed results with patient and his and recommended 10 pounds weight loss. (6) DVT prophylaxis: On IV heparin drip as above. Subjective Patient seen and examined at the bedside. Underwent uneventful cardiac catheterization today by Dr. Rebolledo. No ill-defined lesion was found. Patient denies fever, chills, chest pain, shortness of breath, syncope, near syncope, hematuria, dysuria. Patient requested to be discharged home after the uneventful cath cardiac catheterization. Patient with follow-up with his primary care physician. Cardiac follow-up is not necessary at this time per Dr. Rebolledo. Review of Systems Review of Systems: All systems reviewed & are unremarkable except as noted in HPI & below Physical Exam Constitutional: WD/WN, vitals as above well developed and + obese Eyes: PERRL, conjunctivae normal, anicteric sclerae ENMT: external ear and nose normal, oropharynx normal Neck: trachea midline, no thyromegaly Respiratory: normal respiratory effort, lungs clear to auscultation Cardiovascular: RRR, no murmur, no edema Gastrointestinal (Abdomen): normal bowel sounds, soft, nontender, no hepatosplenomegaly Musculoskeletal: no cyanosis or clubbing, extremities motor strength 5/5 Skin: no rashes, warm and dry Neurologic: patellar DTR's 2+ bilat, sensation intact Psychiatric: A+Ox3, euthymic affect Genitourinary: no testicular masses, no penis abnormality Lymphatic: no cervical or axillary lymphadenopathy Results & Data Vital Signs (Past 12 Hours) Vital Signs Temp Pulse Resp BP BP Pulse Ox 12/21/18 15:30 62 136/62 98 12/21/18 15:28 36.9 C 67 18 145/79 H 94 12/21/18 14:30 36.8 C 60 14 126/53 L 98 12/21/18 14:00 36.9 C 67 18 137/75 96 12/21/18 13:30 37.2 C 60 18 130/70 96 12/21/18 13:15 37.2 C 54 L 18 133/72 95 12/21/18 13:08 61 16 155/92 H 95 12/21/18 10:55 36.9 C 61 22 140/79 96 12/21/18 07:46 36.7 C 60 18 131/75 94 PG Care Time/CCT Total # of Minutes Spent Total Time Spent with Patient: Total time spent is greater than 50% in coordination of care (as documented) at patient's floor/unit and/or counseling patient:
--- NOTE | 2018-12-21 19:01 | Discharge Summary ---
Date of Service December 21, 2018 Admission HPI Per Admitting Provider The patient is a 53-year-old male with no significant past medical history, who has not been involved with a medical system for many years, and has a very significant family history of coronary artery disease and his father and brother. He just moved to the area this past weekend, and over the past 2 to 3 days has been doing more lifting and unpacking of heavier objects. With this activity, he has developed episodes of chest discomfort and shortness of breath, that resolved with rest. They have been developing with an more frequent intervals and lasting longer. He presented to the emergency department for assessment, was felt to have unstable angina, and was started on aspirin 324 mg and standard heparin drip without bolus. In the emergency department, he does also report some intermittent episodes of lightheadedness. Principal Diagnosis none Discharge Exam Constitutional WD/WN, vitals as above well developed and + obese Eyes PERRL, conjunctivae normal, anicteric sclerae ENMT external ear and nose normal, oropharynx normal Neck trachea midline, no thyromegaly Respiratory normal respiratory effort, lungs clear to auscultation Cardiovascular RRR, no murmur, no edema Gastrointestinal (Abdomen) normal bowel sounds, soft, nontender, no hepatosplenomegaly Musculoskeletal no cyanosis or clubbing, extremities motor strength 5/5 Skin no rashes, warm and dry Neurologic patellar DTR's 2+ bilat, sensation intact Psychiatric A+Ox3, euthymic affect Genitourinary no testicular masses, no penis abnormality Lymphatic no cervical or axillary lymphadenopathy Discharge Data Allergies Allergy/AdvReac Type Severity Reaction Status Date / Time No Known Allergies Allergy Unverified 12/19/18 22:17 Consultations 12/19/18 21:29 ED Decision to Admit Stat 12/19/18 23:20 Consult Cardiology Routine Consult Case Management - Discharge Planning Routine Procedures Performed Operation Date: 12/21/18 12:00 Actual Procedures p Cath, Left with Cors and Vent - Will Rebolledo MD s Cineradiography w/Routine Exam - Will Rebolledo MD Ordered Studies 12/21/18 06:43 CL Cath Imgs for PACS use only Routine Hospital Course (1) Unstable angina: Atypical chest pain resolved. Left main was a large and long vessel which bifurcates normally into the left anterior descending and left circumflex vessel. There is no significant disease in this vessel. Left anterior descending shows approximately 50% of ostial stenosis. The midpoint of LAD tapered significantly and likely was 40 to 50% long tubular stenosis in this portion. No discrete lesion. Left circumflex: There is no discrete lesion in this distribution. Right coronary artery: Had luminal irregularities in its proximal portion but no discrete lesion. Dr. Rebolledo recommended coronary artery disease modifying agent such as statins, aspirin and fish oil. (2) Family history of coronary artery disease: Father had [place] and CABG at age 55. Brother had coronary artery stents at age 53. (3) Obesity (BMI 30-39.9): Noted as risk factor for cardiovascular disease. (4) Hypokalemia: Resolved. Aim K > 4 (5) Hyperglycemia, unspecified: Blood sugar 115 in the ED. HbA1C 5.5.-Borderline, or prediabetic. Discussed results with patient and his and recommended 10 pounds weight loss. (6) DVT prophylaxis: On IV heparin drip as above. Total Time Total Time Spent Total Time Spent (In Minutes): over 30 min Discharge Plan Discharge Items Patient Disposition: Home - Self-Care Reason For Visit: UNSTABLE ANGINA Discharge Diagnosis: atypical chest pain Activity: Resume your previous activity Lifting: Gradually increase as tolerated Non-emergency contact: Primary Care Provider Call non-emergency contact if: you have any medication questions, your symptoms worsen, your pain is not controlled, your pain is worsening, your pain is unusual for you, your pain is concerning for you, you have a fever, your temperature is above 101, your temperature is above 101.5 and your wound has increased redness Follow-up/Referrals: PCP,NO [Primary Care Provider] - Diet: Heart Healthy Addtl Attending Provider Instructions: please follow up with PCP in 7 days Pending Studies at Discharge: No Stand-Alone Forms: Call Back Authorization, [facility] Chromatin, Smoking Cessation Medications and DC Order Prescriptions: New aspirin [Ecotrin Low Strength] 81 mg Tablet,Delayed Release (Dr/Ec) 81 mg PO QAM Qty: 30 RF: 0 atorvastatin 20 mg tablet 20 mg PO HS Qty: 30 RF: 0 omega-3 fatty acids [Fish Oil Concentrate] 1,000 mg capsule 1,000 mg PO BID Qty: 60 RF: 0 No Action No Known Home Medications RF: 0 Discharge Orders: Discharge Order (Routine); Ordered 12/21/18 Ordered By: Michelle Smith/Other Patient Handouts: Atorvastatin Calcium Oral tablet, Angina, Meds Taking Admission Data Admit Date/Time: 12/19/18 22:31 Attending Provider: Michelle Weller Admit Provider: Gage Thacker Primary Care Provider: PCP,NO Other Providers: Gage Thacker ; Santy Marcelo ; Franc Urena Other Interventions: Discharge Summary Assessment (RN) Last Done: 12/21/18 16:56 DC Date/Time DO NOT enter until pt leaves facility: 12/21/18 17:35
== END 2018-12-21 17:35 | disposition home or self-care (01) ==
LOC: 2S 20:27 → ED 20:27 → SUATTDRO 22:31 → 2S 22:54 → 2E 12-20 14:23